=== PATIENT | male | born 1975 ===

== ENCOUNTER 2023-12-12 16:59 | Emergency (ER) | payer SELFPAY ==
[~2023-12-12] VITALS: Ht 175.3 cm; Wt 67.7 kg
[2023-12-12 17:00] VITALS: BP 124/82; TEMP 97.4; O2SAT 98
== END 2023-12-12 22:50 | disposition left against medical advice (07) ==
LOC: M ED 16:59
DX: Z53.21 Procedure and treatment not carried out due to patient leaving prior to being seen by health care provider (principal)